=== PATIENT | male | born 1985 | race African-American/Black ===

== ENCOUNTER 2024-08-15 11:17 | Inpatient (IN) | payer OTHER ==
[2024-08-15 11:42] VITALS: BMI 30.4
[2024-08-15] MEDS ORDERED: ACETAMINOPHEN 325 MG TABLET (FP) ONE (13:01)
[2024-08-15] MEDS ORDERED: amLODIPine BESYLATE 5 MG TABLET (FP) ONE (13:01)
[2024-08-15] MEDS ORDERED: BENZOCAINE/MENTHOL (CHLORASEPTIC ) LOZENGE MM PRN (16:42)
[2024-08-15] MEDS ORDERED: hydrOXYzine PAMOATE 25 MG CAPSULE (FP) PO PRN (16:42)
[2024-08-15] MEDS ORDERED: ACETAMINOPHEN 325 MG TABLET (FP) PO PRN (16:42)
[2024-08-15] MEDS ORDERED: BISMUTH SUBSALICYLATE 524 MG/30 ML PO PRN (16:42)
[2024-08-15] MEDS ORDERED: MAG HYDROX/AL HYDROX/SIMETH 30 ML UNIT-DOSE CUP PO PRN (16:42)
[2024-08-15] MEDS ORDERED: IBUPROFEN 400 MG TABLET (FP) PO PRN (16:42)
[2024-08-15] MEDS ORDERED: NALOXONE (NARCAN) HCL 4 MG/0.1 ML SPRAY NS PRN (16:42)
[2024-08-15] MEDS ORDERED: LOPERAMIDE HCL 2 MG CAPSULE PO PRN (16:42)
[2024-08-15] MEDS ORDERED: METHOCARBAMOL 500 MG TABLET PO PRN (16:42)
[2024-08-15] MEDS ORDERED: BENZONATATE 200 MG CAPSULE PO PRN (16:42)
[2024-08-15] MEDS ORDERED: IBUPROFEN 600 MG TABLET (FP) PO PRN (16:42)
[2024-08-15] MEDS ORDERED: MAGNESIUM HYDROX 2400MG/30ML ORAL SUSPENSION 30 ML CUP PO PRN (16:42)
[2024-08-15] MEDS ORDERED: POLYETHYLENE GLYCOL (HEALTHYLAX) 3350 17 GM PACKET PO PRN (16:42)
[2024-08-15] MEDS ORDERED: DICYCLOMINE HCL 10 MG CAPSULE PO PRN (16:42)
[2024-08-15] MEDS ORDERED: ONDANSETRON *ODT* 4 MG TABLET SL PRN (16:42)
[2024-08-15] MEDS ORDERED: guaiFENesin 600 MG TABLET.ER (FP) PO PRN (16:42)
[2024-08-15] MEDS ORDERED: ALBUTEROL SO4 HFA INHALER IH PRN ×2 (16:57→17:19)
[2024-08-15] MEDS: amLODIPine BESYLATE 10 MG TABLET (FP) PO SCH (17:33)
[2024-08-15] MEDS: NALTREXONE HCL 50 MG TABLET PO ONE (17:34)
[2024-08-15] MEDS: THIAMINE 100 MG TABLET PO SCH (22:01)
[2024-08-15] MEDS: MELATONIN 5 MG TABLETS PO SCH (22:01)
[2024-08-16] MEDS ORDERED: amLODIPine BESYLATE 10 MG TABLET (FP) PO SCH (10:00)
[2024-08-16] MEDS: PRENATAL VITAMINS W/ FOLIC ACID TABLET (FP) PO SCH (10:34)
[2024-08-16] MEDS: NALTREXONE HCL 50 MG TABLET PO SCH (10:35)
[2024-08-16] MEDS: HYDROCHLOROTHIAZIDE 25 MG TABLET (FP) PO SCH (17:05)
[2024-08-17 07:27] VITALS: RESP 16
[2024-08-17 09:11] VITALS: BP 140/96; PULSE 91; TEMP 98.9
== END 2024-08-17 10:46 | disposition home or self-care (01) | DRG 775 ==
LOC: YASAS 11:17 → Y6N 13:15
PROVIDERS: ADMIT Allergy & Immunology; ATTEND Allergy & Immunology
PROC: HZ2ZZZZ Detoxification Services for Substance Abuse Treatment (ICD-10-PCS; principal; 2024-08-15)
DX: F10.230 Alcohol dependence with withdrawal, uncomplicated (principal); F17.210 Nicotine dependence, cigarettes, uncomplicated; F10.282 Alcohol dependence with alcohol-induced sleep disorder; I10 Essential (primary) hypertension; J45.909 Unspecified asthma, uncomplicated; Z59.01 Sheltered homelessness
CPT/HCPCS: 36415; 80305; 80307